=== PATIENT | male | born 1990 | race Caucasian/White ===

== ENCOUNTER 2018-10-15 18:08 | Emergency (ER) | payer MEDICAID ==
[2018-10-15] MEDS ORDERED: ONDANSETRON DISINTEGRATING 4 MG TAB PO ONE (18:46)
[2018-10-15] MEDS ORDERED: LORazepam 1 MG TAB PO ONE (18:46)
--- NOTE | 2018-10-15 18:49 | EDPHY ---
H & P Time Seen by Provider: 10/15/18 18:31 HPI/ROS: CHIEF COMPLAINT: "I am withdrawing from fentanyl" HISTORY OF PRESENT ILLNESS: 28-year-old male history of chronic back pain, chronic opiate dependence, states that he forgets change at his fentanyl patch in a timely manner and is not experiencing opiate withdrawal symptoms including anxiety, hyperventilation, tearfulness. He has a new fentanyl patch at home but has not returned home yet to changed out yet. Denies: Chest pain, dyspnea , abdominal pain, loosen a quesada. PRIMARY CARE PROVIDER: REVIEW OF SYSTEMS: Aside from elements discussed in the HPI, a comprehensive 10 point review of systems was reviewed and is negative.] PAST MEDICAL & SURGICAL HISTORY: Opiate dependence secondary to chronic back pain SOCIAL HISTORY: Denies illicit drug use PHYSICAL EXAM (Prior to examination, patient consented to physical exam, hands were washed and my usual and customary physical exam procedures followed) 1) GENERAL: Well-developed, well-nourished, alert and oriented. Appears anxious. 2) HEAD: Normocephalic, atraumatic 3) HEENT: Pupils equal, round, reactive to light bilaterally. Sclera anicteric. 4) NECK: Full range of motion, no meningeal signs. 5) LUNGS: Clear auscultation bilaterally, no wheezes, no rhonchi, no retractions. 6) HEART: Regular rate and rhythm, no murmur, no heave, no gallop. 7) ABDOMEN: No guarding, no rebound, no focal tenderness, negative McBurney's, negative Edouard's, negative Rovsing's, negative peritoneal sign, 8) MUSCULOSKELETAL: Moving all extremities, no focal areas of tenderness, no obvious trauma. No peripheral edema or discoloration. 9) BACK: No CVA tenderness, no midline vertebral tenderness, no fluctuance, no step-off, no obvious trauma, no visual or palpable abnormality. 10) SKIN: Piloerection noted, No rash, no petechiae. 11) Psychiatric: Patient is oriented X 3, there is no agitation. DIFFERENTIAL DIAGNOSIS: In no particular order include but limited to acute opiate withdrawal, opiate dependence, chronic back pain Smoking Status: Current every day smoker Constitutional: Initial Vital Signs Temperature (C) 36.6 C 10/15/18 18:15 Heart Rate 108 H 10/15/18 18:15 Respiratory Rate 16 10/15/18 18:15 Blood Pressure 113/72 10/15/18 18:15 O2 Sat (%) 99 10/15/18 18:15 O2 Delivery Mode Room Air Allergies/Adverse Reactions: morphine Allergy (Verified 10/15/18 18:14) Home Medications: Medication Instructions Recorded Flexeril 10 MG (*) 10/15/18 Genvoya Tablet 10/15/18 Ibuprofen 10/15/18 Nortriptyline HCl 10/15/18 fentaNYL 10/15/18 MDM/Departure - MDM ED Course/Re-evaluation: Patient has been given oral Zofran and oral Ativan x1 in the ER. He has a new fentanyl patch at home which he is planning on placing soon as he returns home. I do not think that diagnostic studies indicated at this time. Recommend caution with fentanyl all use in the future. He feels comfortable being discharged. Care of patient under supervision of secondary supervising physician Dr Giron . - Depart Disposition: Home, Routine, Self-Care Clinical Impression: Opiate withdrawal Condition: Good Instructions: Opioid Withdrawal (ED) Additional Instructions: Please take your medication as prescribed and on schedule. Referrals: HUBERT CAREY [Other] - 2-3 days, call for appt.
[2018-10-15 19:15] VITALS: BP 93/75
== END 2018-10-15 19:15 | disposition home or self-care (01) ==
DX: F11.23 Opioid dependence with withdrawal (principal); G89.29 Other chronic pain; M54.9 Dorsalgia, unspecified; F17.200 Nicotine dependence, unspecified, uncomplicated